=== PATIENT | female | born 1965 | race African-American/Black ===

== ENCOUNTER 2016-09-30 11:39 | Emergency (ER) | payer OTHER ==
[2016-09-30 11:57] VITALS: BP 120/50; PULSE 65; TEMP 98.5; BMI 27.1
== END 2016-09-30 13:59 | disposition left against medical advice (07) ==
LOC: JER 11:39
DX: Z53.21 Procedure and treatment not carried out due to patient leaving prior to being seen by health care provider (principal)
CPT/HCPCS: 99281-25

== ENCOUNTER 2018-06-13 09:27 | Emergency (ER) | payer OTHER ==
[2018-06-13 09:52] VITALS: BMI 30.9
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
[2018-06-13 11:02] LABS: HEMATOCRIT 39.3 % (32.4-45.2); MCH 30.4 pg (25.7-33.7); MEAN PLT VOLUME 8.8 fl (7.5-11.1); PLATELET COUNT 145 K/MM3 (134-434); RBC 4.27 M/mm3 (3.60-5.2); RDW 13.3 % (11.6-15.6); WHITE BLOOD COUNT 4.1 K/mm3 (4.0-10.0)
[2018-06-13 11:17] LABS: URINE APPEARANCE CLEAR; URINE BILIRUBIN NEGATIVE (<2.0 mg/dL); URINE COLOR YELLOW; URINE GLUCOSE (UA) NEGATIVE (NEGATIVE); URINE KETONE NEGATIVE (NEGATIVE); URINE LEUK ESTERASE TRACE (NEGATIVE); URINE NITRITE NEGATIVE (NEGATIVE); URINE PROTEIN 1+ (NEGATIVE)
[2018-06-13 11:19] LABS: EPI CELLS RARE /HPF (FEW); URINE MUCUS RARE
[2018-06-13 11:30] LABS: ALBUMIN 3.6 g/dl (3.4-5.0); ALK PHOS 97 U/L (45-117); ANION GAP 8 MMOL/L (8-16); BILIRUBIN,TOTAL 0.6 mg/dL (0.2-1.0); BLOOD UREA NITROGEN 19 mg/dL (7-18); CALCIUM 8.7 mg/dL (8.5-10.1); CHLORIDE 108 mmol/L (98-107); CO2 28 mmol/L (21-32); CREATININE 0.6 mg/dL (0.55-1.3); GLUCOSE,RANDOM 98 mg/dL (74-106); LIPASE 147 U/L (73-393); POTASSIUM 4.3 mmol/L (3.5-5.1); SGOT/AST 393 U/L (15-37); SGPT/ALT 340 U/L (13-61); SODIUM 144 mmol/L (136-145)
[2018-06-13 11:31] LABS: PLATELET ESTIMATE DECREASED
[2018-06-13] MEDS ORDERED: KETOROLAC TROMETHAMINE 30 MG/1 ML VIAL IVPUSH ONE (12:01)
[2018-06-13] MEDS ORDERED: morphine CARPU-JECT 4 MG/1 ML DISP.SYRIN IVPUSH ONE (12:06)
[2018-06-13] MEDS ORDERED: KETOROLAC TROMETHAMINE 30 MG/1 ML VIAL ONE (12:07)
[2018-06-13] MEDS ORDERED: morphine SULFATE 4 MG/ML VIAL ONE (12:08)
[2018-06-13 14:30] VITALS: BP 126/75; PULSE 77; TEMP 98.5
== END 2018-06-13 14:31 | disposition home or self-care (01) ==
LOC: JER 09:27
PROC: 3E033GC Introduction of Other Therapeutic Substance into Peripheral Vein, Percutaneous Approach (ICD-10-PCS; principal; 2018-06-13)
PROC: 3E0333Z Introduction of Anti-inflammatory into Peripheral Vein, Percutaneous Approach (ICD-10-PCS; 2018-06-13)
PROC: 3E033NZ Introduction of Analgesics, Hypnotics, Sedatives into Peripheral Vein, Percutaneous Approach (ICD-10-PCS; 2018-06-13)
PROC: 3E0337Z Introduction of Electrolytic and Water Balance Substance into Peripheral Vein, Percutaneous Approach (ICD-10-PCS; 2018-06-13)
DX: R10.10 Upper abdominal pain, unspecified (principal); M54.5 Low back pain; G89.29 Other chronic pain; Z21 Asymptomatic human immunodeficiency virus [HIV] infection status; F17.210 Nicotine dependence, cigarettes, uncomplicated; I50.9 Heart failure, unspecified
CPT/HCPCS: 36415; 76705-TC; 80053; 81003; 81015; 83690; 85025; 96374; 96375; 99284-25

== ENCOUNTER 2024-03-06 08:59 | Observation (INO) | payer OTHER ==
[2024-03-06 09:28] VITALS: BMI 28.1
[2024-03-06] MEDS: methylPREDNISolone NA SUCC 125 MG/2 ML VIAL IVPUSH ONE (10:45)
[2024-03-06] MEDS: MAGNESIUM 1GM/D5W - 1 GM/100 ML IVPB IVPB ONE (11:01)
[2024-03-06] MEDS ORDERED: methylPREDNISolone NA SUCC 125 MG/2 ML VIAL ONE (11:03)
[2024-03-06] MEDS ORDERED: ALBUTEROL SO4 2.5/IPRATROPIUM 0.5 INH SOL 3 ML VIAL.NEB. NEB ONE ×3 (11:03→20:05)
[2024-03-06] MEDS ORDERED: MAGNESIUM SULFATE IN WATER 2 GM/50 ML IVPB IVPB ONE (11:04)
[2024-03-06] MEDS: ALBUTEROL SO4 2.5/IPRATROPIUM 0.5 INH SOL 3 ML VIAL.NEB. NEB SCH ×2 (11:16→17:27)
[2024-03-06] MEDS: MAGNESIUM SULF 50% (8.12 MEQ/2 ML-1 GM VIAL) IVPB ONE (11:16)
[2024-03-06 11:19] LABS: BASO % 0.2 % (0-2.0); EOS % 1.1 % (0-4.5); HEMOGLOBIN 13.1 GM/dL (10.7-15.3); LYMPH % 47.1 % (8-40); MCH 31.6 pg (25.7-33.7); MCHC 33.7 g/dl (32.0-36.0); MEAN CELL VOLUME 93.8 fl (80-96); MEAN PLT VOLUME 9.5 fl (7.5-11.1); MONO % 8.8 % (3.8-10.2); NEUT % 42.8 % (42.8-82.8); PLATELET COUNT 210 10^3/uL (134-434); RBC 4.16 M/mm3 (3.60-5.2); RDW 13.4 % (11.6-15.6); WHITE BLOOD COUNT 7.4 K/mm3 (4.0-10.0)
[2024-03-06 11:25] LABS: INR 1.04 (0.83-1.09)
[2024-03-06 11:51] LABS: POTASSIUM 4.4 mmol/L (3.5-5.1)
[2024-03-06 11:53] LABS: ALBUMIN 4.1 g/dl (3.4-5.0); BLOOD UREA NITROGEN 15.2 mg/dL (7-18); CALCIUM 9.4 mg/dL (8.5-10.1); MAGNESIUM 2.2 mg/dL (1.8-2.4)
[2024-03-06 11:56] LABS: CREATININE 0.7 mg/dL (0.55-1.3)
[2024-03-06 11:58] LABS: BILIRUBIN,TOTAL 0.4 mg/dL (0.2-1); TOT PROT 7.9 g/dl (6.4-8.2)
[2024-03-06] MEDS ORDERED: AZITHROMYCIN 500 MG TABLET ONE (14:24)
[2024-03-06] MEDS: AZITHROMYCIN 250 MG TABLET PO SCH (14:26)
[2024-03-06] MEDS ORDERED: ALBUTEROL SO4 0.083% IH SOL 2.5 MG/3 ML VIAL.NEB. NEB ONE (14:40)
[2024-03-06] MEDS: ALBUTEROL SO4 0.083% IH SOL 2.5 MG/3 ML VIAL.NEB. NEB PRN (14:43)
[2024-03-06] MEDS ORDERED: ALBUTEROL SO4 0.083% IH SOL 2.5 MG/3 ML VIAL.NEB. NEB SCH (16:00)
[2024-03-06] MEDS ORDERED: SPIRONOLACTONE 25 MG TABLET ONE (22:25)
[2024-03-06] MEDS ORDERED: DIVALPROEX SODIUM 500 MG TABLET E.C. ONE (22:25)
[2024-03-06] MEDS ORDERED: MONTELUKAST NA 10 MG TABLET ONE (22:25)
[2024-03-06] MEDS ORDERED: HEPARIN NA (PORCINE) 5,000 UNITS/ML 1ML VIAL ONE (22:25)
[2024-03-06] MEDS: SPIRONOLACTONE 25 MG TABLET PO SCH (22:36)
[2024-03-06] MEDS: MONTELUKAST NA 10 MG TABLET PO SCH (22:36)
[2024-03-06] MEDS: rOPINIRole HCL 0.25 MG TABLET PO SCH (22:36)
[2024-03-06] MEDS: DIVALPROEX SODIUM 500 MG TABLET E.C. PO SCH (22:36)
[2024-03-06] MEDS: HEPARIN NA (PORCINE) 5,000 UNITS/ML 1ML VIAL SQ SCH (22:36)
[2024-03-07] MEDS ORDERED: methylPREDNISolone NA SUCC 40 MG/1 ML VIAL ONE (06:56)
[2024-03-07] MEDS: methylPREDNISolone NA SUCC 40 MG/1 ML VIAL IVPUSH SCH (07:03)
[2024-03-07] MEDS: EMPAGLIFLOZIN (JARDIANCE) 10 MG TABLET PO SCH (08:00)
[2024-03-07] MEDS: CITALOPRAM HYDROBROMIDE 20 MG TABLET PO SCH (08:00)
[2024-03-07 08:02] LABS: EOS % 0.2 % (0-4.5); HEMATOCRIT 39.4 % (32.4-45.2); HEMOGLOBIN 13.2 GM/dL (10.7-15.3); LYMPH % 28.5 % (8-40); MCH 31.7 pg (25.7-33.7); MCHC 33.6 g/dl (32.0-36.0); MEAN CELL VOLUME 94.4 fl (80-96); MEAN PLT VOLUME 8.9 fl (7.5-11.1); MONO % 7.9 % (3.8-10.2); NEUT % 63.4 % (42.8-82.8); PLATELET COUNT 213 10^3/uL (134-434); RBC 4.17 M/mm3 (3.60-5.2); RDW 13.1 % (11.6-15.6); WHITE BLOOD COUNT 11.6 K/mm3 (4.0-10.0)
[2024-03-07 08:05] LABS: POTASSIUM 4.4 mmol/L (3.5-5.1)
[2024-03-07 08:10] LABS: BLOOD UREA NITROGEN 19.7 mg/dL (7-18); CALCIUM 9.4 mg/dL (8.5-10.1)
[2024-03-07 08:14] LABS: CREATININE 0.8 mg/dL (0.55-1.3)
[2024-03-07 08:31] VITALS: BP 143/65; PULSE 60; RESP 18; TEMP 97.6
[2024-03-07] MEDS ORDERED: FAMOTIDINE 20 MG TABLET PO SCH (10:00)
[2024-03-07] MEDS ORDERED: TORSEMIDE 20 MG TABLET (FP) PO SCH (10:00)
[2024-03-07] MEDS ORDERED: DOLUTEGRAVIR SODIUM 50 MG TABLET (NON-FORMULARY) PO SCH (10:00)
[2024-03-07] MEDS ORDERED: PATIENT'S OWN MEDICATION (NON-FORMULARY) (Doravirine/Lamivu/Tenofov Diso [Delstrigo 100-30 PO SCH (10:00)
[2024-03-07] MEDS ORDERED: LORATADINE 10 MG TABLET PO SCH (10:00)
[2024-03-07] MEDS ORDERED: MULTIVITAMINS (DAILY MVI) TABLET (FP) PO SCH (10:00)
== END 2024-03-07 08:36 | disposition home or self-care (01) ==
LOC: JER 08:59 → JERBED 12:40
PROVIDERS: ADMIT Internal Medicine
PROC: 3E0F7GC Introduction of Other Therapeutic Substance into Respiratory Tract, Via Natural or Artificial Opening (ICD-10-PCS; principal; 2024-03-06)
PROC: 3E023GC Introduction of Other Therapeutic Substance into Muscle, Percutaneous Approach (ICD-10-PCS; 2024-03-06)
PROC: 3E033GC Introduction of Other Therapeutic Substance into Peripheral Vein, Percutaneous Approach (ICD-10-PCS; 2024-03-06)
DX: J44.1 Chronic obstructive pulmonary disease with (acute) exacerbation (principal); J45.909 Unspecified asthma, uncomplicated; B20 Human immunodeficiency virus [HIV] disease; G47.30 Sleep apnea, unspecified; G40.909 Epilepsy, unspecified, not intractable, without status epilepticus; E78.00 Pure hypercholesterolemia, unspecified; I50.9 Heart failure, unspecified; I38 Endocarditis, valve unspecified; Z72.0 Tobacco use; Z86.19 Personal history of other infectious and parasitic diseases; Z88.8 Allergy status to other drugs, medicaments and biological substances
CPT/HCPCS: 0241U-QW; 36415; 71045-TC-FY; 80048; 80053; 83735; 85025; 85610; 93005; 93010; 93971-TC; 94640; 96372; 96374; 96375; 99285-25; G0378; J1644